=== PATIENT | male | born 1950 | race Caucasian/White ===

== ENCOUNTER → 2020-06-26 | Outpatient (CLI) | payer MEDICARE ==
[2020-06-26 10:35] LABS: BASO # 0.1 x10^3/uL (0.0-0.2); BASO % 1 % (0-3); EOS % 0 % (0-3); HEMATOCRIT 42.8 % (39.0-53.0); HEMOGLOBIN 13.5 g/dL (13.0-17.5); LYMPH # 0.9 x10^3/uL (1.0-4.8); LYMPH % 6 % (24-48); MEAN CORPUSCULAR HEMOGLOBIN 29 pg (25-35); MEAN CORPUSCULAR HGB CONC 32 g/dL (31-37); MEAN CORPUSCULAR VOLUME 91 fL (79-100); MONO # 0.3 x10^3/uL (0.0-1.1); MONO % 2 % (0-9); NEUT # 15.3 x10^3uL (1.8-7.7); NEUT % 92 % (31-73); PLATELET COUNT 218 x10^3/uL (140-400); RED BLOOD COUNT 4.68 x10^6/uL (4.30-5.70); WHITE BLOOD COUNT 16.7 x10^3/uL (4.0-11.0)
[2020-06-26 10:44] LABS: CALCIUM 8.8 mg/dL (8.5-10.1); CREATININE 1.2 mg/dL (0.7-1.3); POTASSIUM 5.5 mmol/L (3.5-5.1)
[2020-06-26 10:50] LABS: ALBUMIN 3.5 g/dL (3.4-5.0); ALBUMIN/GLOBULIN RATIO 1.1 (1.0-1.7); TOTAL BILIRUBIN 0.5 mg/dL (0.2-1.0); TOTAL PROTEIN 6.8 g/dL (6.4-8.2)
[2020-06-26 11:03] LABS: % BANDS 3 % (0-9); % EOS 1 % (0-5); % LYMPHS 2 % (24-48); % MONOS 4 % (0-10); % SEGS 90 % (35-66)
[2020-06-26 11:04] LABS: PLT ESTIMATE ADEQUATE (ADEQUATE)
== END ==
LOC: LAB 09:11
PROVIDERS: ATTEND Internal Medicine Hematology & Oncology
DX: Z12.5 Encounter for screening for malignant neoplasm of prostate (principal); C61 Malignant neoplasm of prostate
CPT/HCPCS: 36415; 80053; 85007; 85025; G0103

== ENCOUNTER → 2020-06-26 | Outpatient (CLI) | payer MEDICARE, OTHER ==
[~2020-06-26] MED LIST: IOHEXOL 300 MG/ML 75 ML VIAL. IV ONE
--- NOTE | 2020-06-26 15:50 | RAD ---
CT CHEST+ABD+PELVIS W History: Prostate cancer. Comparison: None. Technique: CT of the chest, abdomen and pelvis with oral and intravenous contrast. Findings: Pulmonary arteries: No large or central pulmonary embolism. Aorta and great vessels: No aneurysm of the aortic arch or thoracic aorta is seen. Mild atherosclerot ic calcification. Heart: Cardiomegaly. No pericardial effusion. Mitral and aortic annular valve calcification. Heavy co ronary artery calcification. Thyroid: No significant abnormalities. Mediastinum and jordyn: No mediastinal masses or adenopathy is seen. Esophagus: The visualized esophagus is normal. Trachea: The visualized tracheobronchial tree is normal. Lungs: Expiratory phase imaging and motion artifact limits evaluation. Compressive atelectasis right lower lobe. No significant pulmonary nodule. Pleural space: Moderate right pleural effusion. No pneumothorax. General abdomen: Partially excluded left abdominal wall and some intraperitoneal portions of the righ t abdomen due to large patient habitus extending outside of scanner cross-section. No ascites. No janae e air. Liver : Normal in size and attenuation. No masses seen. Gallbladder/Biliary Tree: Normal gallbladder. No intrahepatic or extrahepatic biliary ductal dilatati on. Pancreas: Mild fatty atrophy. Spleen: Normal in size and attenuation. Adrenal glands: Normal. Kidneys: No hydronephrosis or hydroureter. No renal masses identified. Gastrointestinal: Unremarkable. Lymph nodes: No lymphadenopathy. Vessels: Unremarkable. Pelvic Organs: Prostatectomy changes. Surgical clips at the right pelvic sidewall. Partially decompre ssed bladder is unremarkable. Soft tissues: Fat-containing umbilical hernia. Fat within the bilateral inguinal canals. Bones: Degenerative changes of the shoulders, spine and hips. No osseous blastic lesions identified. Impression: 1. History prostate cancer without evidence of residual or metastatic disease. No blastic lesions id entified, however recommend correlation with bone scan. 2. Cardiomegaly, mitral and aortic annular calcification, and heavy coronary artery calcification. 3. Moderate right pleural effusion. ------ Exposure: One or more of the following individualized dose reduction techniques were utilized for thi s examination: 1. Automated exposure control 2. Adjustment of the mA and/or kV according to patient size 3. Use of iterative reconstruction technique. Electronically signed by: Kobe Martinez MD (06/26/2020 3:47 PM) [facility]
--- NOTE | 2020-06-26 17:10 | RAD ---
Whole-body bone scan Clinical indications: Prostate cancer. Follow-up study. COMPARISON: February 07, 2013 bone scan. TECHNIQUE: After IV infusion of 25 mCi of technetium 99m MDP, delayed anterior and posterior planar i mages of the whole body were performed. FINDINGS: Bilateral renal function is evident. There is degenerative activity involving both shoulder s and sternoclavicular joints. There is degenerative activity seen involving both hindfeet and both k nees. There is no abnormal pattern of uptake to indicate osseous metastatic disease scintigraphically . IMPRESSION: No osseous metastatic disease is seen scintigraphically. Electronically signed by: Ketan Sierra MD (06/26/2020 5:08 PM) [id number]
== END ==
LOC: NM 09:16
PROVIDERS: ATTEND Radiology Radiation Oncology
DX: C61 Malignant neoplasm of prostate (principal); J90 Pleural effusion, not elsewhere classified; I25.10 Atherosclerotic heart disease of native coronary artery without angina pectoris; I51.7 Cardiomegaly
CPT/HCPCS: 71260; 74177; 78306; A9503; Q9967

== ENCOUNTER → 2020-07-11 | Outpatient (CLI) | payer MEDICARE ==
--- NOTE | 2020-07-11 14:10 | RAD ---
EXAM: Chest, 2 views. HISTORY: Shortness of breath on exertion. COMPARISON: 05/08/2014 FINDINGS: 2 views of the chest are obtained. There is stable linear scarring along the lateral right mid thorax. There is slight increased linear scarring or atelectasis within the left mid thorax. Ther e is right lower lobe atelectasis or interstitial infiltrate. There is a suspected small right pleura l effusion. There is no consolidation or pneumothorax. There is a stable prominent cardiac silhouette . IMPRESSION: 1. Right lower lobe atelectasis or interstitial infiltrate with suspected small pleural effusion. 2. Stable linear or linear scarring within the lateral right mid thorax and slight increased linear a telectasis or scarring within the left mid thorax. 3. Stable enlarged cardiac silhouette. Electronically signed by: Kathi Linn MD (07/11/2020 2:07 PM) [id number]
== END ==
LOC: DXRAD 10:53
PROVIDERS: ATTEND Physician Assistant Medical
DX: I51.7 Cardiomegaly (principal)
CPT/HCPCS: 71046

== ENCOUNTER 2020-09-03 08:53 | Emergency (ER) | payer MEDICARE ==
[~2020-09-03] VITALS: Ht 162.6 cm; Wt 131.0 kg
[2020-09-03] MEDS ORDERED: ADENOSINE 6 MG/2 ML VIAL IV ONE (09:30)
[2020-09-03 09:46] LABS: BASO # 0.1 x10^3/uL (0.0-0.2); BASO % 1 % (0-3); EOS # 0.2 x10^3/uL (0.0-0.7); EOS % 1 % (0-3); HEMATOCRIT 36.2 % (39.0-53.0); HEMOGLOBIN 11.5 g/dL (13.0-17.5); LYMPH # 1.6 x10^3/uL (1.0-4.8); LYMPH % 14 % (24-48); MEAN CORPUSCULAR HEMOGLOBIN 28 pg (25-35); MEAN CORPUSCULAR HGB CONC 32 g/dL (31-37); MEAN CORPUSCULAR VOLUME 89 fL (79-100); MONO # 0.8 x10^3/uL (0.0-1.1); MONO % 6 % (0-9); NEUT # 9.1 x10^3uL (1.8-7.7); NEUT % 77 % (31-73); PLATELET COUNT 225 x10^3/uL (140-400); RED BLOOD COUNT 4.09 x10^6/uL (4.30-5.70); WHITE BLOOD COUNT 11.8 x10^3/uL (4.0-11.0)
[2020-09-03] MEDS ORDERED: dilTIAZem 25 MG/5 ML VIAL IVP ONE ×2 (09:51→10:00)
--- NOTE | 2020-09-03 09:51 | RAD ---
AP portable chest radiograph 09/03/2020 Clinical History: Shortness of breath. An AP erect portable digital radiograph of the chest was obtained. Comparison study is dated 07/11/2020. The cardiac silhouette is mildly enlarged. The thoracic aorta is tortuous. Atherosclerotic calcificat ion of the thoracic aorta is seen. There is a small to moderate-sized right pleural effusion which is increased since the previous examination. Increasing right lower lobe atelectasis and/or infiltrate is noted. No pneumothorax is seen. The osseous structures are unchanged. Impression: [id number]-qb-[id number] sized right pleural effusion with right lower lobe atelectasis and/or i nfiltrate which has increased since the previous study. Electronically signed by: Eric Huertas MD (09/03/2020 9:48 AM) [id number]
--- NOTE | 2020-09-03 09:58 | PHYS DOC ---
Past History Additional Past Medical Histor: enlarged tumor in groin recently dx'd Past Surgical History: Other Additional Past Surgical Histo: prostectomy 2015; infection in heart 2009; rapid heart rate Alcohol Use: None General Adult EDM: Chief Complaint: SHORTNESS OF BREATH HPI: HPI: 70-year-old male presents from home with shortness of breath. He tells me he has been feeling short of breath "for a while". His tells me that he has had more trouble last couple of days. She has noticed that when he is gone to the doctor recently he seems to have an elevated heart rate above 100. She is not sure patient has also had increased lower extremity swelling bilaterally. No known history of SVT or A. fib. He denies chest pain or diaphoresis. He has not had a significant cough. Denies fever or chills. Review of Systems: Review of Systems: Constitutional: Denies fever or chills Eyes: Denies change in visual acuity HENT: Denies nasal congestion or sore throat Respiratory: shortness of breath Cardiovascular: Increased lower extremity edema. Denies chest pain GI: Denies abdominal pain, nausea, vomiting, bloody stools or diarrhea : Denies dysuria Musculoskeletal: Denies back pain or joint pain Integument: Denies rash Neurologic: Denies headache, focal weakness or sensory changes Endocrine: Denies polyuria or polydipsia Lymphatic: Denies swollen glands Psychiatric: Denies depression or anxiety Current Medications: Current Meds: Current Medications Medications (Trade) Dose Ordered Sig/Cristino Start Time Stop Time Status Last Admin Dose Admin Adenosine (Adenocard) 12 mg 1X ONCE 09/03/20 09:30 09/03/20 09:32 DC 09/03/20 09:40 12 MG Allergies: Allergies: Allergies Coded Allergies Type Severity Reaction Last Updated Verified iodine Allergy Mild burning sensation 09/03/20 No Physical Exam: PE: Constitutional: Well developed, well nourished, morbidly obese, no acute distress, non-toxic appearance. [] HENT: Normocephalic, atraumatic, bilateral external ears normal, oropharynx moist, no oral exudates, nose normal. [] Eyes: PERRLA, EOMI, conjunctiva normal, no discharge. [] Neck: Normal range of motion, no tenderness, supple, no stridor. [] Cardiovascular: Heart rate 144, irregular rhythm, no murmur [] Lungs & Thorax: Bilateral breath sounds clear to auscultation [] Abdomen: Bowel sounds normal, soft, no tenderness, no masses, no pulsatile masses. [] Skin: Warm, dry, no erythema, no rash. [] Back: No tenderness, no CVA tenderness. [] Extremities: No tenderness, no cyanosis, no clubbing, ROM intact, 3+ pitting edema bilateral lower extremities to above the knees [] Neurologic: Alert and oriented X 3, normal motor function, normal sensory function, no focal deficits noted. [] Psychologic: Affect normal, judgement normal, mood normal. [] Current Patient Data: Vital Signs: Vital Signs Date Time Temp Pulse Resp B/P (MAP) Pulse Ox O2 Delivery O2 Flow Rate FiO2 09/03/20 09:33 143 24 133/93 (106) 96 Room Air 09/03/20 09:02 97.9 EKG: EKG: Irregular rhythm, rate 144, normal axis, no ST elevation or depression, SVT. [] Radiology/Procedures: Radiology/Procedures: [] Impressions: AP portable chest radiograph 09/03/2020 Clinical History: Shortness of breath. An AP erect portable digital radiograph of the chest was obtained. Comparison study is dated 07/11/2020. The cardiac silhouette is mildly enlarged. The thoracic aorta is tortuous. Atherosclerotic calcification of the thoracic aorta is seen. There is a small to moderate-sized right pleural effusion which is increased since the previous examination. Increasing right lower lobe atelectasis and/or infiltrate is noted. No pneumothorax is seen. The osseous structures are unchanged. Impression: Alhli-yf-jhidxrvh sized right pleural effusion with right lower lobe atelectasis and/or infiltrate which has increased since the previous study. Electronically signed by: Eric Huertas MD (09/03/2020 9:48 AM) [id number] DICTATED AND SIGNED BY: ERIC HUERTAS MD DATE: 09/03/20 0947 CC: TEE CMCARTNEY DO; SHIVANI MONTANO PA ~MTH0 0 Heart Score: C/O Chest Pain: No Risk Factors: Risk Factors: DM, Current or recent (<one month) smoker, HTN, HLP, family history of CAD, obesity. Risk Scores: Score 0 - 3: 2.5% MACE over next 6 weeks - Discharge Home Score 4 - 6: 20.3% MACE over next 6 weeks - Admit for Clinical Observation Score 7 - 10: 72.7% MACE over next 6 weeks - Early Invasive Strategies Course & Med Decision Making: Course & Med Decision Making Pertinent Labs and Imaging studies reviewed. (See chart for details) The patient appears to be in SVT at a rate of 144. Clinically he appears fluid overloaded. He has been a difficult IV stick. We attempted 12 mg of adenosine without effect. I will give him 20 mg of Cardizem and have a CTA of the chest done. Chest x-ray shows worsening right pleural effusion. The patient's creatinine makes a CTA not advisable. The trial of Cardizem did slow his heart rate down to around 115. It appeared more consistent with A. fib. We will start a Cardizem drip. The patient's labs are significant for slightly elevated troponin. I believe this is most consistent with demand ischemia his EKG did not show ST elevation. He has cardiomegaly by chest x-ray. I spoke with hospitalist, Dr. Colindres and he has recommended the patient be transferred to [facility]. He is further recommended an additional 40 of Lasix for a total of 80 and 500 of digoxin. The patient is in agreement with transfer. He will go by ambulance. [] Shelby Disclaimer: Shelby Disclaimer: This electronic medical record was generated, in whole or in part, using a voice recognition dictation system. Departure Departure: Impression: Primary Impression: Pleural effusion Additional Impressions: Atrial fibrillation Qualified Codes: I48.91 - Unspecified atrial fibrillation Elevated troponin I level Elevated serum creatinine Disposition: 02 SHORT TERM HOSPITAL Admitting Physician: Dequan Colindres Condition: GUARDED Referrals: SHIVANI MONTANO (PCP) TEE MCCARTNEY DO Sep 03, 2020 09:58
[2020-09-03] MEDS ORDERED: FUROSEMIDE 40 MG/4 ML VIAL IVP ONE ×2 (10:00→11:45)
[2020-09-03] MEDS ORDERED: IOHEXOL 350 MG/ML 100 ML VIAL. IV ONE (10:15)
[2020-09-03] MEDS ORDERED: IOHEXOL 350 MG/ML 100 ML VIAL. IJ ONE (10:30)
[2020-09-03 10:31] LABS: CALCIUM 9.3 mg/dL (8.5-10.1); CREATININE 1.8 mg/dL (0.7-1.3); GFR 37.6; POTASSIUM 4.7 mmol/L (3.5-5.1)
[2020-09-03 10:44] LABS: ALBUMIN 3.6 g/dL (3.4-5.0); ALBUMIN/GLOBULIN RATIO 1.1 (1.0-1.7); TOTAL BILIRUBIN 0.6 mg/dL (0.2-1.0); TOTAL PROTEIN 6.9 g/dL (6.4-8.2)
[2020-09-03] MEDS ORDERED: dilTIAZem VIAL 125 MG in IV NORMAL SALINE 100ML 100 ML IV PRN (10:45)
--- NOTE | 2020-09-03 11:39 | EKG ---
[address] [address] Test Date: 2020-09-03 Test Time: 09:07:53 Pat Name: LON DODSON Department: Room: Gender: M Seasoner: MATT : 1950 Requested By: TEE MCCARTNEY Order Number: [id number] Reading MD: Measurements Intervals [place] Rate: 144 P: PA: QRS: 69 QRSD: 82 T: 75 QT: 304 QTc: 475 Interpretive Statements SUPRAVENTRICULAR TACHYCARDIA QRS(T) CONTOUR ABNORMALITY CONSIDER ANTEROSEPTAL INFARCT POSSIBLY ABNORMAL ECG RI6.02 No previous ECG available for comparison
[2020-09-03] MEDS ORDERED: DIGOXIN IV 500 MCG/2 ML AMPUL. IV ONE (11:45)
[2020-09-03] MEDS ORDERED: DEXTROSE 50% 25 GM / 50ML DISP.SYRIN. IV ONE (17:15)
[2020-09-03 18:18] VITALS: BP 117/63
== END 2020-09-03 18:22 | disposition short-term general hospital (02) ==
LOC: ER 08:53
DX: J90 Pleural effusion, not elsewhere classified (principal); I48.91 Unspecified atrial fibrillation; R77.8 Other specified abnormalities of plasma proteins; R79.89 Other specified abnormal findings of blood chemistry; Z88.8 Allergy status to other drugs, medicaments and biological substances
CPT/HCPCS: 36415; 51702; 71045; 80053; 82947; 83880; 84484; 85025; 93005; 96365; 96366; 96374; 96375; 99285; J0153; J1160; J1940; J3490

== ENCOUNTER → 2020-12-27 | Outpatient (CLI) | payer MEDICARE ==
[2020-12-27 12:35] LABS: CALCIUM 8.9 mg/dL (8.5-10.1); CREATININE 1.2 mg/dL (0.7-1.3); POTASSIUM 4.2 mmol/L (3.5-5.1)
== END ==
LOC: LAB 11:20
PROVIDERS: ATTEND Nurse Practitioner
DX: I10 Essential (primary) hypertension (principal)
CPT/HCPCS: 36415; 80048

== ENCOUNTER → 2021-01-21 | Outpatient (CLI) | payer MEDICARE ==
[2021-01-21 14:55] LABS: CALCIUM 8.6 mg/dL (8.5-10.1); CREATININE 1.2 mg/dL (0.7-1.3); POTASSIUM 3.7 mmol/L (3.5-5.1)
[2021-01-21 15:07] LABS: BASO # 0.1 x10^3/uL (0.0-0.2); BASO % 1 % (0-3); EOS # 0.4 x10^3/uL (0.0-0.7); EOS % 3 % (0-3); HEMATOCRIT 34.1 % (39.0-53.0); HEMOGLOBIN 10.3 g/dL (13.0-17.5); LYMPH # 1.7 x10^3/uL (1.0-4.8); LYMPH % 15 % (24-48); MEAN CORPUSCULAR HEMOGLOBIN 24 pg (25-35); MEAN CORPUSCULAR HGB CONC 30 g/dL (31-37); MEAN CORPUSCULAR VOLUME 81 fL (79-100); MONO # 0.8 x10^3/uL (0.0-1.1); MONO % 7 % (0-9); NEUT # 8.5 x10^3uL (1.8-7.7); NEUT % 74 % (31-73); PLATELET COUNT 283 x10^3/uL (140-400); RED BLOOD COUNT 4.23 x10^6/uL (4.30-5.70); RED CELL DISTRIBUTION WIDTH 18.6 % (11.5-14.5); WHITE BLOOD COUNT 11.5 x10^3/uL (4.0-11.0)
== END ==
LOC: LAB 14:15
PROVIDERS: ATTEND Internal Medicine Interventional Cardiology
DX: Z01.818 Encounter for other preprocedural examination (principal)
CPT/HCPCS: 36415; 80048; 85025

== ENCOUNTER → 2021-05-14 | Outpatient (CLI) | payer MEDICARE ==
--- NOTE | 2021-05-14 16:26 | RAD ---
EXAM: CT HEAD WITHOUT CONTRAST. HISTORY: Memory loss. TECHNIQUE: Computed tomography of the head was performed without intravenous contrast. One or more of the following individualized dose reduction techniques were utilized for this examination: 1. Automated exposure control. 2. Adjustment of the mA and/or kV according to patient size. 3. Use of iterative reconstruction technique. COMPARISON: None. FINDINGS: There is no intracranial hemorrhage. Hypoattenuation within the white matter indicates mode rate chronic microangiopathic change. Prominence of the lateral ventricles and hemispheric sulci mis cates mild to moderate atrophy. The visualized paranasal sinuses appear clear. The orbits are unremarkable. The temporal bones are un remarkable. The calvarium reveals no suspicious lesions. There are atherosclerotic calcifications of the internal carotid and vertebral arteries. IMPRESSION: 1. No acute intracranial findings. 2. Mild to moderate atrophy and chronic microangiopathic white matter change. Electronically signed by: Vijaya Reynoso MD (05/14/2021 4:24 PM) [facility]
== END ==
LOC: CT 14:42
PROVIDERS: ATTEND Physician Assistant Medical
DX: G31.9 Degenerative disease of nervous system, unspecified (principal); R41.3 Other amnesia; I70.8 Atherosclerosis of other arteries; I65.29 Occlusion and stenosis of unspecified carotid artery
CPT/HCPCS: 70450

== ENCOUNTER → 2021-05-14 | Outpatient (CLI) | payer MEDICARE ==
--- NOTE | 2021-05-14 17:12 | CARD ---
MR#: [id number] Date of Study: 05/14/2021 Ordering Physician: ROMA HARDY, Referring Physician: ROMA HARDY, Tech: Best Emery [facility] APPROVED REPORT EXAM: Two-dimensional and M-mode echocardiogram with Doppler and color Doppler. Other Information Quality : FairHR: 108bpm Rhythm : TachycardiaTechnically limited study due to body habitus and smoking. The patient could no t lie down for optimal imaging. Marked dyspnea. INDICATION Hypertension/HCVD RISK FACTORS Hypertension Obesity Hyperlipidemia Smoking 2D DIMENSIONS Left Atrium(2D)4.5 (1.6-4.0cm)IVSd1.6 (0.7-1.1cm) Aortic Root(2D)3.1 (2.0-3.7cm)LVDd4.4 (3.9-5.9cm) LVOT Diameter2.0 (1.8-2.4cm)PWd1.6 (0.7-1.1cm) LA Uoexfx62 (18-58mL)LVDs3.0 (2.5-4.0cm) FS (%) 31.4 %SV51.2 ml LVEF(%)59.6 (>50%) Aortic Valve AoV Peak Levi.226.9cm/sAoV VTI37.4cm AO Peak GR.20.6mmHgLVOT Peak Levi.97.0cm/s LVOT VTI 18.12cmAO Mean GR.14mmHg KESHIA (VMAX)1.91yn4MCW (VTI)1.54cm2 Mitral Valve MV E Peak Gr.7mmHgMV E Mean Gr.3mmHg Pulmonary Valve PV Peak Etidzzse71.9cm/sPV Peak Grad.2mmHg Tricuspid Valve TR P. Efjefhvy671xl/sTR Peak Gr.29mmHg LEFT VENTRICLE The left ventricle is normal size. There is moderate concentric left ventricular hypertrophy. The sys tolic function is mildly to moderately impaired. The Ejection Fraction is 35-40%. There is moderate g lobal hypokinesis with septal motion suggestive of conduction defect. Tissue Doppler imaging reveals moderate left ventricular diastolic dysfunction. No left ventricle thrombus noted on this study. Ther e is no ventricular septal defect visualized. There is no left ventricular aneurysm. There is no mass noted in the left ventricle. RIGHT VENTRICLE The right ventricle is mildly dilated. There is normal right ventricular wall thickness. The right ve ntricular systolic function is normal. ATRIA The left atrium is moderately dilated. The right atrium is mildly dilated. The interatrial septum is intact with no evidence for an atrial septal defect or patent foramen ovale as noted on 2-D or Dopple r imaging. AORTIC VALVE The aortic valve is moderately thickened but opens well. Doppler and Color Flow revealed no significa nt aortic regurgitation. There is mild valvular aortic stenosis. Calculated aortic valve area is 1.4 cm2 with maximum pressure gradient of 21 mmHg and mean pressure gradient of 13 mmHg. MITRAL VALVE Mitral annular calcification is moderate. The mitral valve is moderately thickened. There is no evide nce of mitral valve prolapse. There is no mitral valve stenosis. TRICUSPID VALVE The tricuspid valve leaflets are thickened , but open well. Doppler and Color Flow revealed trace tri cuspid regurgitation. The PA pressure was estimated at 35-40 mmHg. There is no tricuspid valve prolap se or vegetation. There is no tricuspid valve stenosis. PULMONIC VALVE Doppler and Color Flow revealed no pulmonic valvular regurgitation. There is no pulmonic valvular mona nosis. GREAT VESSELS The aortic root is normal in size. The ascending aorta is normal in size. The IVC is borderline dilat ed with blunted inspiratory response. PERICARDIAL EFFUSION There is no pleural effusion. There is no evidence of significant pericardial effusion. Critical Notification Critical Value: No <Conclusion> The systolic function is mildly to moderately impaired. The Ejection Fraction is 35-40%. There is moderate global hypokinesis with septal motion suggestive of conduction defect. Signed by : Roma Hardy, Electronically Approved : 05/14/2021 17:11:56
== END ==
LOC: ECHO 13:21
PROVIDERS: ATTEND Internal Medicine Cardiovascular Disease
DX: I08.0 Rheumatic disorders of both mitral and aortic valves (principal); I25.5 Ischemic cardiomyopathy
CPT/HCPCS: 93306